=== PATIENT | female | born 1990 | race Caucasian/White ===

== ENCOUNTER 2021-12-21 10:08 | Emergency (ER) | payer SELFPAY ==
[~2021-12-21 10:08] MED LIST: COLACE 100MG C100 MG PO; IBUPROFEN600 MG PO; PREDNISONE 20 M20 MG PO; TYLENOL 500 MG500 MG PO
== END 2021-12-21 11:47 | disposition home or self-care (01) ==
LOC: ER1 10:08
DX: L51.9 Erythema multiforme, unspecified (principal); F17.290 Nicotine dependence, other tobacco product, uncomplicated
CPT/HCPCS: 99283